=== PATIENT | female | born 1990 | race African-American/Black ===

== ENCOUNTER 2016-06-30 21:19 | Emergency (ER) | payer SELFPAY ==
[~2016-06-30] VITALS: Ht 162.6 cm; Wt 113.6 kg
[~2016-06-30 21:19] MED LIST: CEPHALEXIN500 MG PO; PREDNISONE20 MG PO; PROVENTIL HFA IN; ZITHROMAX500 MG PO
[2016-06-30] MEDS ORDERED: LISINOPRIL10 M1 PO (21:34)
[2016-06-30] MEDS ORDERED: LEVEMIR100 UNIT/M SC (21:35)
[2016-06-30] MEDS ORDERED: NOVOLOG100 UNIT/M (21:36)
[2016-06-30] MEDS ORDERED: AMLODIPINE10 MG PO (21:39)
[2016-06-30 21:46] LABS: HEMATOCRIT 38.5 % (37.0-47.0); HEMOGLOBIN 11.8 g/dl (12.0-16.0); IMMATURE GRANULOCYTES 0.3 % (0.0-1.0); MEAN CELL VOLUME 82.6 fL CALC (80.0-100.0); MEAN CORPUSCULAR HGB 25.3 pG CALC (26.0-32.0); MEAN CORPUSCULAR HGB CONC 30.6 g/L CALC (32.0-36.0); NEUT# 4.53 thou/uL (2.00-7.15); RED BLOOD COUNT 4.66 mill/uL (4.20-5.60); RED CELL DISTRI WIDTH 14.3 % (11.5-15.5)
[2016-06-30 22:04] LABS: ALBUMIN 4.1 g/dL (3.2-5.0); ALKALINE PHOSPHATASE 79 u/l (38-126); ANION GAP 15 (6-22 (CALC)); BILIRUBIN, TOTAL 0.4 mg/dL (0.0-1.4); BUN 13 mg/dL (7-17); BUN/CREATININE RATIO 16 (12-20 (CALC)); CARBON DIOXIDE 26 mmol/l (22-30); CHLORIDE 98 mmol/l (95-108); CREATININE 0.8 mg/dL (0.5-1.0); GFR > 60 ML/MIN (>=60 (CALC)); GFR FOR AFR.AMER. > 60 ML/MIN (>=60 (CALC)); GLUCOSE 208 mg/dL (65-105); POTASSIUM 4.3 mmol/l (3.5-5.1); SGOT/AST 23 u/l (14-36); SGPT/ALT 25 u/l (9-52); SODIUM 136 mmol/l (137-146); TOTAL PROTEIN 7.8 g/dL (6.3-8.2)
[2016-06-30] MEDS ORDERED: INDOMETHACIN75 MG PO (22:15)
[2016-06-30] MEDS ORDERED: COLCHICINE0.6 M2 PO (22:15)
[2016-06-30] MEDS ORDERED: LORTAB 5-325 MG1 TAB PO (22:15)
[2016-06-30 22:44] VITALS: BP 154/88
== END 2016-06-30 22:53 | disposition home or self-care (01) | DRG 554 ==
LOC: ED 21:19
PROVIDERS: Emergency Medicine
DX: M10.071 Idiopathic gout, right ankle and foot (principal); M25.571 Pain in right ankle and joints of right foot

== ENCOUNTER 2016-12-28 11:06 | Emergency (ER) | payer SELFPAY ==
[~2016-12-28] VITALS: Ht 162.6 cm; Wt 120.0 kg
[~2016-12-28 11:06] MED LIST changes: +AMLODIPINE10 MG PO; +COLCHICINE0.6 M2 PO; +INDOMETHACIN75 MG PO; +LEVEMIR100 UNIT/M SC; +LISINOPRIL10 M1 PO; +LORTAB 5-325 MG1 TAB PO; +NOVOLOG100 UNIT/M
[2016-12-28 11:34] LABS: HEMATOCRIT 39.6 % (37.0-47.0); HEMOGLOBIN 12.3 g/dl (12.0-16.0); IMMATURE GRANULOCYTES 0.3 % (0.0-1.0); MEAN CELL VOLUME 81.5 fL CALC (80.0-100.0); MEAN CORPUSCULAR HGB 25.3 pG CALC (26.0-32.0); MEAN CORPUSCULAR HGB CONC 31.1 g/L CALC (32.0-36.0); NEUT# 3.08 thou/uL (2.00-7.15); RED BLOOD COUNT 4.86 mill/uL (4.20-5.60); RED CELL DISTRI WIDTH 13.9 % (11.5-15.5)
[2016-12-28 11:52] LABS: ALBUMIN 4.2 g/dL (3.2-5.0); ALKALINE PHOSPHATASE 77 u/l (38-126); BILIRUBIN, TOTAL 0.5 mg/dL (0.0-1.4); BUN 10 mg/dL (7-17); BUN/CREATININE RATIO 16 (12-20 (CALC)); CALCIUM 9.6 mg/dL (8.4-10.2); CARBON DIOXIDE 24 mmol/l (22-30); CHLORIDE 104 mmol/l (95-108); CREATININE 0.6 mg/dL (0.5-1.0); GFR > 60 ML/MIN (>=60 (CALC)); GFR FOR AFR.AMER. > 60 ML/MIN (>=60 (CALC)); GLUCOSE 172 mg/dL (65-105); POTASSIUM 4.1 mmol/l (3.5-5.1); SGOT/AST 40 u/l (14-36); SGPT/ALT 33 u/l (9-52); TOTAL PROTEIN 7.9 g/dL (6.3-8.2)
[2016-12-28 11:54] LABS: ANION GAP 14 (6-22 (CALC)); SODIUM 138 mmol/l (137-146)
[2016-12-28 12:03] LABS: MYOGLOBIN 37 ng/mL (0 - 62)
[2016-12-28 13:34] LABS: URINE BILIRUBIN - DIPSTICK NEGATIVE (NEGATIVE); URINE BLOOD DIPSTICK LARGE (NEGATIVE); URINE CLARITY SLIGHT CLOUDY; URINE GLUCOSE - DIPSTICK NEGATIVE (NEGATIVE); URINE KETONE NEGATIVE (NEGATIVE); URINE LEUK ESTERASE NEGATIVE (NEGATIVE); URINE NITRITE - DIPSTICK NEGATIVE (Negative); URINE PH 5.5 (4.5-8.0); URINE PROTEIN - DIPSTICK 100 mg/dL (NEG-TRACE); URINE SPECIFIC GRAVITY >=1.030; URINE UROBILINOGEN - DIPSTICK 0.2 E.U./dL (0.2)
[2016-12-28 13:35] LABS: URINE COLOR AMBER
[2016-12-28 13:37] LABS: BARBITURATES NEGATIVE (NEGATIVE); COCAINE NEGATIVE (NEGATIVE); METHADONE NEGATIVE (NEGATIVE); OXCYCODONE NEGATIVE (NEGATIVE); TETRAHYDROCANNABIONOL POSITIVE (NEGATIVE); TRICYLIC ANTIDEPRESSANTS NEGATIVE (NEGATIVE)
[2016-12-28 13:40] LABS: URINE RBC >100 RBC/hpf (0-5); URINE SQUAMOUS EPITHELIAL CELL FEW EPI/hpf (0-FEW)
[2016-12-28 14:24] VITALS: BP 154/85
== END 2016-12-28 14:28 | disposition home or self-care (01) | DRG 948 ==
LOC: ED 11:06
PROVIDERS: Emergency Medicine
DX: R53.1 Weakness (principal); I10 Essential (primary) hypertension; E11.9 Type 2 diabetes mellitus without complications; Z79.4 Long term (current) use of insulin; Z91.14 Patient's other noncompliance with medication regimen

== ENCOUNTER 2017-01-07 08:42 | Observation (INO) | payer SELFPAY ==
[~2017-01-07] VITALS: Ht 162.6 cm; Wt 137.0 kg
--- NOTE | 2017-01-07 08:42 | NUR ---
PT TO ROOM 15 VIA EMS W/NEB. PT SEEN IN RIG BY THIS NURSE W/REG RESPIRATIONS. PT ARRIVED TO 15 AND BEGAN BREATHING RAPIDLY. PT REDIRECTED BY THIS NURSE TO SLOW BREATHING DOWN. PT BECAME AGRESSIVE AND YELLING AT NURSE TO NOT TELL HER WHAT TO DO. MD IN ROOM AND REDIRECTED PT TO CALM DOWN. NEB CONTINUED. IV SOLUMEDROL 125MG PROVIDED BY EMS SMALL PARTS ASSEMBLER.
--- NOTE | 2017-01-07 08:50 | NUR ---
POISON CONTROL CONTACTED AND ADVISED OF PT. PER POISON CONTROL--PT SHOULD BE TREATED PER NORMAL PROTOCOL FOR PT IN RESPIRATORY DISTRESS R/T IRRITANT AND ONCE CONDITION HAS RESOLVED PT MAY BE DISCHARGE. INFORMATION RELAYED TO EDP.
--- NOTE | 2017-01-07 09:00 | NUR ---
PT ON PHONE SPEAKING TO MOTHER, PT IS BREATHING BETTER, EXPLAINED THAT POISON CONTROL WANTS US TO MONITER HER RESPIRATORY COMPLAINT, MADE SURE SHE UNDERSTOOD THE REMOTE CONTROL FUNCTIONS. SIDE RAILS UP. ASKED IF SHE NEEDED ANYTHING ELSE. PT STATES NO, SHE WANTS TO KEEP PHONE TO BE ABLE TO CALL HER SISTER. STATES HER SYMPTOMS STARTED APPROX 30 MIN AGO WHEN SHE MIXED CLEANING INGREDIANTS. STATES SHE SAW FUMES EVEN THO DOOR AND WINDOW WAS OPEN IN ROOM.
[2017-01-07 09:16] LABS: HEMATOCRIT 43.6 % (37.0-47.0); HEMOGLOBIN 13.3 g/dl (12.0-16.0); IMMATURE GRANULOCYTES 0.4 % (0.0-1.0); MEAN CELL VOLUME 83.2 fL CALC (80.0-100.0); MEAN CORPUSCULAR HGB 25.4 pG CALC (26.0-32.0); MEAN CORPUSCULAR HGB CONC 30.5 g/L CALC (32.0-36.0); NEUT# 3.72 thou/uL (2.00-7.15); RED BLOOD COUNT 5.24 mill/uL (4.20-5.60); RED CELL DISTRI WIDTH 13.8 % (11.5-15.5)
[2017-01-07 09:39] LABS: ALBUMIN 4.7 g/dL (3.2-5.0); ALKALINE PHOSPHATASE 96 u/l (38-126); ANION GAP 17 (6-22 (CALC)); BILIRUBIN, TOTAL 0.5 mg/dL (0.0-1.4); BUN 8 mg/dL (7-17); BUN/CREATININE RATIO 13 (12-20 (CALC)); CARBON DIOXIDE 26 mmol/l (22-30); CHLORIDE 101 mmol/l (95-108); CREATININE 0.6 mg/dL (0.5-1.0); GFR > 60 ML/MIN (>=60 (CALC)); GFR FOR AFR.AMER. > 60 ML/MIN (>=60 (CALC)); GLUCOSE 171 mg/dL (65-105); POTASSIUM 4.1 mmol/l (3.5-5.1); SGOT/AST 22 u/l (14-36); SGPT/ALT 37 u/l (9-52); SODIUM 140 mmol/l (137-146)
[2017-01-07 09:52] LABS: MYOGLOBIN 26 ng/mL (0 - 62)
[2017-01-07] MEDS ORDERED: MEDDOSEPAK PO (10:16)
--- NOTE | 2017-01-07 11:31 | NUR ---
PT PROVIDED ADDITIONAL RESP TX, ABG DONE. EDP SPEAKS WITH PT, ADVISES ADMISSION FOR OBSERVATION OF STATUS, PT AGREEABLE.
--- NOTE | 2017-01-07 12:02 | NUR ---
SBAR PRINTED TO FLOOR
--- NOTE | 2017-01-07 12:30 | NUR ---
PT TO ROOM VIA STRETCHER ACCOMPANIED BY STAFF; AMBULATORY TO BED WITH STAND BY ASSIST; TELE MONITOR IN PLACE; PT REQUESTNG SHOWER AT THIS TIME; CALL MURO WITHIN REACH; WILL CONTINUE TO MONITOR.
--- NOTE | 2017-01-07 12:41 | NUR ---
PT TAKEN TO ROOM 277 WITHOUT INCIDENT, REPORT WAS TO MADDIE.
[2017-01-07] MEDS ORDERED: LEVEMIR100 UNIT/M SC (13:44)
[2017-01-07] MEDS ORDERED: NOVOLOG100 UNIT/M (13:44)
[2017-01-07] MEDS ORDERED: METFORMIN500 MG PO (13:44)
[2017-01-07 14:00] VITALS: BP 134/78
--- NOTE | 2017-01-07 15:30 | NUR ---
PT WATCHING TV; NO COMPLAINTS VOICED; ST 111 ON TELE MONITOR; CALL MURO WITHIN REACH; WILL CONTINUE TO MONITOR.
[2017-01-07 16:00] VITALS: BP 144/65
[2017-01-07 18:00] VITALS: BP 146/92
--- NOTE | 2017-01-07 20:00 | NUR ---
PATIENT RESTING IN BED AT THIS TIME WITH LIGHT OUT AND POSITIONED ON BHER SIDE. PATIENT WITH NO COMPLAINTS AT THIS TIME. CALL LIGHT IN REACH. WILL CONT TO MONITOR.
--- NOTE | 2017-01-07 21:30 | NUR ---
PATIENT AWAKE ALERT AND ORIENTEDX3 WITH NO COMPLAINTS AT THIS TIME. BS-253 AND MEDICATED WITH LEVEMIR 10 UNITS ORDERED. HS SNACK PROVIDED. HEP LOCK TO LEFT AC INTACT WITH GOOD BLOOD RETURN. SOLU-MEDROL GIVEN ORDERED. LUNGS ARE DIMINISHED BUT CLEAR AT THIS TIME. O2 VIA N/C IN PLACE AT 2LPM. CALL LIGHT IN REACH. WILL CONT TO MONITOR.
[2017-01-07 23:48] VITALS: BP 133/79
--- NOTE | 2017-01-08 00:12 | NUR ---
APPEARS SLEEPING AT THIS TIME POSITIONED ON HER SIDE WITH EYES CLOSED WITH O2 IN PLACE VIA NASAL CANNULA. CALL LIGHT IN REACH. WILL CONT TO MONITOR.
--- NOTE | 2017-01-08 04:41 | NUR ---
PATIENT APPEARS SLEEPING AT THIS TIME WITH O2 VIA NASAL CANNULA IN PLACE. CALL LIGHT IN REACH. WILL CONT TO MONITOR.
[2017-01-08 05:18] VITALS: BP 118/88
[2017-01-08 05:32] LABS: HEMATOCRIT 42.2 % (37.0-47.0); MEAN CELL VOLUME 82.1 fL CALC (80.0-100.0); MEAN CORPUSCULAR HGB 25.3 pG CALC (26.0-32.0); MEAN CORPUSCULAR HGB CONC 30.8 g/L CALC (32.0-36.0); RED BLOOD COUNT 5.14 mill/uL (4.20-5.60); RED CELL DISTRI WIDTH 14.2 % (11.5-15.5)
[2017-01-08 05:58] LABS: ANION GAP 20 (6-22 (CALC)); BUN 11 mg/dL (7-17); BUN/CREATININE RATIO 17 (12-20 (CALC)); CALCIUM 10.4 mg/dL (8.4-10.2); CALCULATED LDLCHOLESTEROL 159 mg/dL (62-129 (CALC)); CARBON DIOXIDE 19 mmol/l (22-30); CHLORIDE 103 mmol/l (95-108); CHOLESTEROL HDL RATIO 3.8 (<4.4 (CALC)); CREATININE 0.6 mg/dL (0.5-1.0); GFR > 60 ML/MIN (>=60 (CALC)); GFR FOR AFR.AMER. > 60 ML/MIN (>=60 (CALC)); GLUCOSE 283 mg/dL (65-105); HDL CHOLESTEROL 66 mg/dL (>=40); POTASSIUM 5.1 mmol/l (3.5-5.1); SODIUM 137 mmol/l (137-146); TOTAL CHOLESTEROL 250 mg/dl (0-199); TOTAL TRIGLYCERIDES 127 mg/dl (30-149); VLDL CHOLESTROL 25 mg/dl (2-29 (CALC))
--- NOTE | 2017-01-08 07:35 | NUR ---
PT.UPRIGHT IN BED AWAKE. DENIES ANY NEEDS AT THIS TIME, PREPARING TO EAT BREAKFAST. CALL LIGHT IS W/IN REACH.
[2017-01-08 08:20] VITALS: BP 142/86
[2017-01-08] MEDS ORDERED: LISINOPRIL10 MG PO (09:17)
[2017-01-08] MEDS ORDERED: AMLODIPINE BESYL5 MG PO (09:17)
[2017-01-08] MEDS ORDERED: LOVASTATIN20 M1 PO (09:17)
[2017-01-08] MEDS ORDERED: IPRATROPIU0.5 MG/3 M IN (09:17)
[2017-01-08] MEDS ORDERED: METFORMIN1000 MG PO (09:17)
[2017-01-08] MEDS ORDERED: PROAIR HFA108 MCG/AC IN (09:17)
[2017-01-08] MEDS ORDERED: AMARYL2 MG PO (09:17)
[2017-01-08] MEDS ORDERED: PREDNISONE10 MG PO (09:18)
--- NOTE | 2017-01-08 11:25 | NUR ---
PT.IV REMOVED/SITE APPEARS HEALTHY, CNC MACHINE PROGRAMMER REMOVED. PT.SELF AMBULATORY IN GOOD CONDITION WITH FRIEND AT SIDE.
== END 2017-01-08 11:15 | disposition home or self-care (01) | DRG 918 ==
LOC: ED 08:42 → ED-I 11:11 → ED 11:47 → MS2 11:48
PROVIDERS: Emergency Medicine; ADMIT Internal Medicine; ATTEND Internal Medicine
DX: T65.891A Toxic effect of other specified substances, accidental (unintentional), initial encounter (principal); T54.91XA Toxic effect of unspecified corrosive substance, accidental (unintentional), initial encounter; E11.69 Type 2 diabetes mellitus with other specified complication; Z68.43 Body mass index [BMI] 50.0-59.9, adult; J45.901 Unspecified asthma with (acute) exacerbation; E66.01 Morbid (severe) obesity due to excess calories; E78.5 Hyperlipidemia, unspecified; I16.0 Hypertensive urgency; L84 Corns and callosities; I10 Essential (primary) hypertension; Y92.002 Bathroom of unspecified non-institutional (private) residence as the place of occurrence of the external cause; Z91.14 Patient's other noncompliance with medication regimen; Z79.4 Long term (current) use of insulin
CPT/HCPCS: G0378; J1650

== ENCOUNTER 2017-06-26 09:44 | Emergency (ER) | payer SELFPAY ==
[~2017-06-26] VITALS: Ht 162.6 cm; Wt 150.0 kg
[~2017-06-26 09:44] MED LIST changes: +AMARYL2 MG PO; +AMLODIPINE BESYL5 MG PO; +IPRATROPIU0.5 MG/3 M IN; +LISINOPRIL10 MG PO; +LOVASTATIN20 M1 PO; +MEDDOSEPAK PO; +METFORMIN1000 MG PO; +METFORMIN500 MG PO; +PREDNISONE10 MG PO; +PROAIR HFA108 MCG/AC IN
[2017-06-26 10:49] LABS: URINE BILIRUBIN - DIPSTICK NEGATIVE (NEGATIVE); URINE BLOOD DIPSTICK TRACE-INTACT (NEGATIVE); URINE COLOR YELLOW; URINE GLUCOSE - DIPSTICK NEGATIVE (NEGATIVE); URINE KETONE NEGATIVE (NEGATIVE); URINE LEUK ESTERASE NEGATIVE (NEGATIVE); URINE NITRITE - DIPSTICK NEGATIVE (Negative); URINE PH 5.5 (4.5-8.0); URINE PROTEIN - DIPSTICK 30 mg/dL (NEG-TRACE); URINE SPECIFIC GRAVITY >=1.030; URINE UROBILINOGEN - DIPSTICK 0.2 E.U./dL (0.2)
[2017-06-26 10:52] LABS: HEMATOCRIT 42.5 % (37.0-47.0); IMMATURE GRANULOCYTES 0.1 % (0.0-1.0); MEAN CORPUSCULAR HGB 25.1 pG CALC (26.0-32.0); MEAN CORPUSCULAR HGB CONC 30.6 g/L CALC (32.0-36.0); NEUT# 4.02 thou/uL (2.00-7.15); RED BLOOD COUNT 5.18 mill/uL (4.20-5.60); RED CELL DISTRI WIDTH 13.2 % (11.5-15.5)
[2017-06-26 10:56] LABS: URINE CLARITY SL CLOUDY; URINE EPITHELIAL CELLS MODERATE EPI/hpf (0-FEW); URINE RBC 0-2 RBC/hpf (0-5)
[2017-06-26 11:12] LABS: ANION GAP 18 (6-22 (CALC)); BUN 9 mg/dL (7-17); BUN/CREATININE RATIO 15 (12-20 (CALC)); CHLORIDE 101 mmol/l (95-108); CREATININE 0.6 mg/dL (0.5-1.0); GFR > 60 ML/MIN (>=60 (CALC)); GFR FOR AFR.AMER. > 60 ML/MIN (>=60 (CALC)); POTASSIUM 4.5 mmol/l (3.5-5.1); SODIUM 141 mmol/l (137-146)
[2017-06-26 11:14] LABS: CARBON DIOXIDE 27 mmol/l (22-30)
[2017-06-26] MEDS ORDERED: CARPAL TUNNEL WRIST XX (11:36)
[2017-06-26] MEDS ORDERED: ACCURETI1 PO (11:36)
[2017-06-26] MEDS ORDERED: VOLTAREN - GENE75 MG PO (11:36)
[2017-06-26 11:53] VITALS: BP 159/91
== END 2017-06-26 11:53 | disposition home or self-care (01) | DRG 563 ==
LOC: ED 09:44
PROVIDERS: Family Medicine
DX: S39.012A Strain of muscle, fascia and tendon of lower back, initial encounter (principal); G56.03 Carpal tunnel syndrome, bilateral upper limbs; E11.65 Type 2 diabetes mellitus with hyperglycemia; Z79.84 Long term (current) use of oral hypoglycemic drugs; R60.0 Localized edema

== ENCOUNTER 2017-12-18 10:00 | Emergency (ER) | payer SELFPAY ==
[~2017-12-18] VITALS: Ht 162.6 cm; Wt 150.0 kg
[~2017-12-18 10:00] MED LIST changes: +ACCURETI1 PO; +CARPAL TUNNEL WRIST XX; +VOLTAREN - GENE75 MG PO
[2017-12-18 10:42] LABS: URINE BILIRUBIN - DIPSTICK NEGATIVE (NEGATIVE); URINE BLOOD DIPSTICK TRACE-INTACT (NEGATIVE); URINE COLOR YELLOW; URINE GLUCOSE - DIPSTICK NEGATIVE (NEGATIVE); URINE KETONE NEGATIVE (NEGATIVE); URINE LEUK ESTERASE NEGATIVE (NEGATIVE); URINE NITRITE - DIPSTICK NEGATIVE (Negative); URINE PH 5.5 (4.5-8.0); URINE PROTEIN - DIPSTICK 100 mg/dL (NEG-TRACE); URINE SPECIFIC GRAVITY >=1.030; URINE UROBILINOGEN - DIPSTICK 0.2 E.U./dL (0.2)
[2017-12-18 10:52] LABS: HEMATOCRIT 43.3 % (37.0-47.0); HEMOGLOBIN 13.5 g/dl (12.0-16.0); IMMATURE GRANULOCYTES 0.4 % (0.0-5.0); MEAN CELL VOLUME 79.4 fL CALC (80.0-100.0); MEAN CORPUSCULAR HGB 24.8 pG CALC (26.0-32.0); MEAN CORPUSCULAR HGB CONC 31.2 g/L CALC (32.0-36.0); NEUT# 5.29 thou/uL (2.00-7.15); RED BLOOD COUNT 5.45 mill/uL (4.20-5.60)
[2017-12-18 10:54] LABS: URINE CLARITY SL CLOUDY
[2017-12-18 10:55] LABS: ALBUMIN 4.5 g/dL (3.2-5.0); ALKALINE PHOSPHATASE 86 u/l (38-126); ANION GAP 17 (6-22 (CALC)); BILIRUBIN, TOTAL 0.5 mg/dL (0.0-1.4); BUN 10 mg/dL (7-17); BUN/CREATININE RATIO 16 (12-20 (CALC)); CARBON DIOXIDE 26 mmol/l (22-30); CHLORIDE 103 mmol/l (95-108); CREATININE 0.6 mg/dL (0.5-1.0); GFR > 60 ML/MIN (>=60 (CALC)); GFR FOR AFR.AMER. > 60 ML/MIN (>=60 (CALC)); LIPASE 52 u/l (23-300); POTASSIUM 4.7 mmol/l (3.5-5.1); SGOT/AST 24 u/l (14-36); SODIUM 142 mmol/l (137-146); TOTAL PROTEIN 8.3 g/dL (6.3-8.2); URINE EPITHELIAL CELLS MODERATE EPI/hpf (0-FEW); URINE MUCUS FEW hpf (NONE-FEW); URINE RBC 0-2 RBC/hpf (0-5)
[2017-12-18] MEDS ORDERED: ZOFRAN ODT4 MG PO (13:05)
[2017-12-18 13:55] VITALS: BP 165/84
== END 2017-12-18 13:59 | disposition home or self-care (01) | DRG 392 ==
LOC: ED 10:00
PROVIDERS: Family Medicine
DX: K52.9 Noninfective gastroenteritis and colitis, unspecified (principal); N83.201 Unspecified ovarian cyst, right side; I10 Essential (primary) hypertension; E11.9 Type 2 diabetes mellitus without complications; T46.5X6A Underdosing of other antihypertensive drugs, initial encounter; T38.3X6A Underdosing of insulin and oral hypoglycemic [antidiabetic] drugs, initial encounter; Z91.128 Patient's intentional underdosing of medication regimen for other reason
CPT/HCPCS: Q9967

== ENCOUNTER 2019-03-16 | Emergency (ER) | payer OTHER ==
[~2019-03-16] MED LIST changes: +ZOFRAN ODT4 MG PO
[2019-03-16 09:02] LABS: HEMATOCRIT 39.7 % (37.0-47.0); HEMOGLOBIN 12.3 g/dl (12.0-16.0); IMMATURE GRANULOCYTES 0.3 % (0.0-5.0); MEAN CORPUSCULAR HGB 25.1 pG CALC (26.0-32.0); NEUT# 6.01 thou/uL (2.00-7.15); RED BLOOD COUNT 4.9 mill/uL (4.20-5.60); RED CELL DISTRI WIDTH 13.7 % (11.5-15.5)
[2019-03-16 09:14] LABS: ALBUMIN 4.6 g/dL (3.2-5.0); ALKALINE PHOSPHATASE 100 u/l (38-126); ANION GAP 16 (6-22 (CALC)); BILIRUBIN, TOTAL 0.3 mg/dL (0.0-1.4); BUN 12 mg/dL (7-17); BUN/CREATININE RATIO 19 (12-20 (CALC)); CARBON DIOXIDE 23 mmol/l (22-30); CHLORIDE 105 mmol/l (95-108); CREATININE 0.6 mg/dL (0.5-1.0); GFR > 60 ML/MIN (>=60 (CALC)); GFR FOR AFR.AMER. > 60 ML/MIN (>=60 (CALC)); LIPASE 60 u/l (23-300); SGOT/AST 24 u/l (14-36); SODIUM 140 mmol/l (137-146); TOTAL PROTEIN 8.4 g/dL (6.3-8.2)
== END 2019-03-16 11:22 | disposition home or self-care (01) ==
PROVIDERS: Family Medicine
DX: S16.1XXA Strain of muscle, fascia and tendon at neck level, initial encounter (principal); S29.012A Strain of muscle and tendon of back wall of thorax, initial encounter; S39.012A Strain of muscle, fascia and tendon of lower back, initial encounter; M25.562 Pain in left knee; M25.561 Pain in right knee; I10 Essential (primary) hypertension; F17.210 Nicotine dependence, cigarettes, uncomplicated; W01.0XXA Fall on same level from slipping, tripping and stumbling without subsequent striking against object, initial encounter; Y92.009 Unspecified place in unspecified non-institutional (private) residence as the place of occurrence of the external cause

== ENCOUNTER 2020-08-25 09:08 | Inpatient (IN) | payer OTHER ==
[2020-08-25] VITALS (9 sets, daily range): BP systolic 162–182; BP diastolic 89–105
[~2020-08-25] VITALS: Ht 162.6 cm; Wt 131.0 kg
--- NOTE | 2020-08-25 09:25 | NUR ---
PATIENT AMBULATED TO ROOM WITH STEADY GAIT AND PHYSICIAN NOTIFIED OF PATIENT STATUS
[2020-08-25] MEDS ORDERED: MIGRAINE MEDICATION (09:49)
[2020-08-25] MEDS ORDERED: METFORMIN500 M2 PO (09:49)
[2020-08-25 10:08] LABS: HEMATOCRIT 39.5 % (37.0-47.0); HEMOGLOBIN 12.2 g/dl (12.0-16.0); IMMATURE GRANULOCYTES 0.3 % (0.0-5.0); MEAN CELL VOLUME 79.5 fL CALC (80.0-100.0); MEAN CORPUSCULAR HGB 24.5 pG CALC (26.0-32.0); MEAN CORPUSCULAR HGB CONC 30.9 g/dL CAL (32.0-36.0); NEUT# 7.62 thou/uL (2.00-7.15); RED BLOOD COUNT 4.97 mill/uL (4.20-5.60); RED CELL DISTRI WIDTH 13.9 % (11.5-15.5)
[2020-08-25 10:16] LABS: ALBUMIN 3.9 g/dL (3.2-5.0); ALKALINE PHOSPHATASE 94 u/l (38-126); ANION GAP 14 (6-22 (CALC)); BUN 6 mg/dL (7-17); BUN/CREATININE RATIO 10 (12-20 (CALC)); CARBON DIOXIDE 25 mmol/l (22-30); CHLORIDE 101 mmol/l (95-108); CREATININE 0.6 mg/dL (0.5-1.0); GFR > 60 ML/MIN (>=60 (CALC)); GFR FOR AFR.AMER. > 60 ML/MIN (>=60 (CALC)); POTASSIUM 3.8 mmol/l (3.5-5.1); SGOT/AST 20 u/l (14-36); SODIUM 136 mmol/l (137-146); TOTAL PROTEIN 7.9 g/dL (6.3-8.2)
[2020-08-25 10:21] LABS: BILIRUBIN, TOTAL 0.5 mg/dL (0.0-1.4)
--- NOTE | 2020-08-25 10:30 | NUR ---
PT LAYING PRONE IN BED FOR COMFORT. STABLE ON MONITOR. IV MEDS COMPLETED. PENDING ADMISSION.
--- NOTE | 2020-08-25 11:15 | NUR ---
PT ARRIVED TO MED SURG FLOOR IN STABLE CONDITION VIA STRETCHER ACCOMPANIED BY ED NURSE, JUNE;PT TRANSFERRED TO BED WITH MINIMAL ASSISTANCE;VS AND ASSESSMENT WERE COMPLETED;PT BELONGINGS INVENTORY WAS CONPLETED;ARM BANDS PLACED ON PT;PT ORIENTED TO ROOM,CALL LIGHT,BED,AND TV;HEART SOUNDS ARE REGULAR IN RATE AND RHYTHM;LUNG SOUNDS ARE CLEAR;RESPIRATIONS ARE EVEN AND UNLABORED ON RA;#20G IV IN LAC IS SL, PATENT AND FREE OF COMPLICATIONS AT THIS TIME;PT HAS AN ABSCESS LOCATED ON HER RT BUTTOCK THAT IS ACCOMPANIED BY SWELLING, WARMTH AND REDNESS;PT IS CURRENTLY IN PRONE POSITION FOR COMFORT AND PAIN RELIEF AT THIS TIME;PT WILL HAVE AN I&D PROCEDURE DONE IN THE OR BY ;PRE-OP PREP IS BEING PERFORMED AT THIS TIME ACCORDING TO POLICY AND ORDERS;SAFETY PRECAUTIONS IN PLACE;CALL LIGHT WITHIN REACH;PT ENCOURAGED TO CALL WITH ANY NEEDS OR CONCERNS;WILL CONTINUE TO MONITOR.
[2020-08-25 11:33] LABS: URINE BILIRUBIN - DIPSTICK NEGATIVE (NEGATIVE); URINE BLOOD DIPSTICK TRACE-LYSED (NEGATIVE); URINE COLOR YELLOW; URINE GLUCOSE - DIPSTICK NEGATIVE (NEGATIVE); URINE KETONE NEGATIVE (NEGATIVE); URINE LEUK ESTERASE NEGATIVE (NEGATIVE); URINE PROTEIN - DIPSTICK 100 mg/dL (NEG-TRACE); URINE UROBILINOGEN - DIPSTICK 0.2 E.U./dL (0.2)
[2020-08-25 11:34] LABS: URINE NITRITE - DIPSTICK NEGATIVE (Negative)
[2020-08-25 11:48] LABS: URINE BACTERIA FEW hpf; URINE SQUAMOUS EPITHELIAL CELL FEW EPI/hpf (0-FEW)
--- NOTE | 2020-08-25 12:45 | NUR ---
PT WAS TRANSPORTED VIA STRETCHER IN STABLE CONDITION TO OR ACCOMPANIED BY OR STAFF
--- NOTE | 2020-08-25 14:40 | NUR ---
PT ARRIVED BACK TO MED SURG FLOOR VIA STRETCHER IN STABLE CONDITION ACCOMPANIED BY OR STAFF;POST OP REPORT RECEIVED AT THIS TIME;PT WAS SETTLED BACK IN BED;VS ARE BEING TAKEN PER SCHEDULE;SAFETY PRECAUTIONS IN PLACE;CALL LIGHT WITHIN REACH;WILL CONTINUE TO MONITOR.
--- NOTE | 2020-08-25 16:00 | NUR ---
PT WAS FOUND RESTING IN BED WITH MOTHER AT BEDSIDE;PT IS A&OX3;PT HAS A SURGICAL INCISION ON HER RIGHT BUTTOCK WITH DRESSING THAT HAS MINIMAL DRAINAGE PRESENT AT THIS TIME;DRESSING CHANGE IS SCHEDULED FOR TONIGHT PER ORDER;#20G IV IN LAC IS RUNNING NS@75ML/HR;IV SITE IS FREE OF COMPLICATIONS AT THIS TIME;SAFETY PRECAUTIONS IN PLACE;CALL LIGHT WITHIN REACH;WILL CONTINUE TO MONITOR.
--- NOTE | 2020-08-25 20:00 | NUR ---
PATIENT ASSESSMENT COMPLETE. PATIENT SITTING UP IN BED TALKING ON PHONE. PAIN TO RIGHT BUTTOCKS 3-4. MEDICATED AROUND THE CLOCK WITH TORADOL WITH POSITIVE EFFECT. DRESSING TO BUTTOCKS INTACT. INSTRUCTED PATIENT TO LAY ON DRESSING TO AID IN DRAINING. VERBALIZED UNDERSTANDING. BED IN LOW POSITIN. CALL LIGHT WITHIN REACH.
[2020-08-26] VITALS (7 sets, daily range): BP systolic 155–178; BP diastolic 70–101
--- NOTE | 2020-08-26 00:14 | NUR ---
PATIENT PREMEDICATED FOR DRESSING CHANGE. INEFFECTIVE. DILAUDID IV GIVEN WITH BETTER EFFECT. DRAINAGE IN SANGUENOUS WITH CLOTS OBSERVABLE. PACKING REMOVED WITH DIFFICULTY. PACKING STICKING TO TISSUE. IRRIGATED WITH SALINE AND REPACKED WITH A DAMP TO DRY DRESSING AND SECURED IN PLACE WITH 2 INCH PAPER TAPE AND SKIN PREP. PATIENT TOLERATED OK.
--- NOTE | 2020-08-26 01:28 | NUR ---
PATIENT RESTING WITH EYES CLOSED. NO ACUTE DISTRESS.
--- NOTE | 2020-08-26 04:24 | NUR ---
PATIENT RESTING QUIETLY. RESPIRATIONS EASY. SEMI-FOWLERS POSITION. NO ACUTE DISTRESS NOTED.
--- NOTE | 2020-08-26 07:32 | NUR ---
ASSESSMENT DONE. PATIENT IS ALERT AND OREINT X3. PATIENT STATED PAIN IN BUTTOCK 08/10. MEIDCATED PATIENT WITH DILAUDID AND ZOFRAN. LUNGS SOUND CLEAR. IVF INFUSING WELL. SCD IN PLACE. PATIENT DENIES ANY OTHER NEEDS AT THIS TIME. CALL LIGHT IN REACH.
[2020-08-26] MEDS ORDERED: INDERAL 40MG TA40 MG PO (09:38)
[2020-08-26] MEDS ORDERED: ATORVASTATIN CA40 MG PO (09:38)
[2020-08-26] MEDS ORDERED: GLIP/METFORM1 TA1 PO (09:39)
[2020-08-26] MEDS ORDERED: HYZAAR1 TA1 PO (09:41)
[2020-08-26] MEDS ORDERED: ARIPIPRAZOLE20 MG PO (09:41)
[2020-08-26] MEDS ORDERED: FIORICET PO (09:43)
--- NOTE | 2020-08-26 10:15 | NUR ---
HAD PREMEDICATED PATIENT FOR PAIN FOR R BUTTOCKS . DRESSING CHANGE DONE ON RIGHT BUTTOCKS. PATIENT STILL HAD PAIN WHILE CHANGE THE DRESSING. BLOODY DRIANGE NOTED. PATIENT DENIES ANY OTHER NEEDS AT THIS TIME . CALL LIGHT IN REACH.
--- NOTE | 2020-08-26 12:22 | NUR ---
PATIENT HAD VOMITED. PATIENT STATED PAIN IN BUTTOCKS 08/10. MEDICATED PATIENT WITH TORADOL. PATIENT DENIES ANY OTHER NEEDS AT THIS TIME. CALL LIGHT IN REACH.
--- NOTE | 2020-08-26 13:30 | NUR ---
FOOD AND BEVERAGE ASSISTANT MANAGER ASSISTED PATIENT TO THE BATHROOM. FOOD AND BEVERAGE ASSISTANT MANAGER STATED PATIENT FELT WEAK WHEN RETURNING TO BED. CALL LIGHT IN REACH.
--- NOTE | 2020-08-26 14:50 | NUR ---
S: KEYON REZA is a 30 F who presents with BUTTICK ABSCESS. She has a history of DM2. All medications in patient's chart were reviewed. O: VS: T 96.6 W 130kG, Scr=0.6,CrCl= >120ml/min> A: Blood culture <is pending Buttock culture <is pending P: Patient is on zosyn 3.375 g q6h . Vancomycin ordered for pharmacy to dose. Start Vancomycin 1250mg IV Q8H. Vancomycin trough is drawn before the 4th dose on 08/27/20 @ 0930. Vancomycin goal trough is between <10-20 mcg/ml>. Pharmacy will follow and or advise on antibiotics use as needed. NOY DUBOIS PHARMD
--- NOTE | 2020-08-26 15:45 | NUR ---
DRAG OUT WORKER AND I ASSISTED PATIENT TO AMBULATE IN ROOM. PATIENT AMBULATED A FEW STEPS AND THEN STATED SHE FELT DIZZY. WE ASISSTED PATIENT BACK IN BED. SAFETY PRECAUTIONS REINFORCED AND CALL LIGHT IN REACH.
--- NOTE | 2020-08-26 16:49 | NUR ---
HAD PREMEDICATED PATIENT WITH PAIN MEDICATION FOR HER DRESSING CHANGE IN HER RIGHT BUTTOCKS. PATIENT HAD BLOODY DRAINAGE NOTED. PATIENT STILL HAD SOME PAIN WHILE CHANGING HER DRESSING. PATIENT DENIES ANY OTHER NEEDS AT THIS TIME. CALL LIGHT IN REACH.
--- NOTE | 2020-08-26 21:30 | NUR ---
PATIENT LAYING IN BED SEMI FOWLERS LEANING TO THE LEFT. GROGGY. PLEASANT. C/O PAIN 3 AT THIS TIME TO RIGHT BUTTOCKS. IVF INFUSING ORDERED. ASSESSMENT COMPLETE. BED IN LOW POSITION. CALL LIGHT WITHIN REACH.
--- NOTE | 2020-08-26 23:17 | NUR ---
PATIENT PREMEDICATED FOR DRESSING CHANGE. DRESSING CHANGED. PATIENT TOLERATED WELL.
[2020-08-27 04:00] VITALS: BP 164/93
[2020-08-27 05:52] LABS: HEMATOCRIT 35.5 % (37.0-47.0); HEMOGLOBIN 10.9 g/dl (12.0-16.0); MEAN CORPUSCULAR HGB 25.2 pG CALC (26.0-32.0); MEAN CORPUSCULAR HGB CONC 30.7 g/dL CAL (32.0-36.0); RED BLOOD COUNT 4.33 mill/uL (4.20-5.60); RED CELL DISTRI WIDTH 14.3 % (11.5-15.5)
[2020-08-27 06:03] LABS: ANION GAP 12 (6-22 (CALC)); BUN 7 mg/dL (7-17); BUN/CREATININE RATIO 9 (12-20 (CALC)); CARBON DIOXIDE 26 mmol/l (22-30); CHLORIDE 104 mmol/l (95-108); CREATININE 0.7 mg/dL (0.5-1.0); GFR > 60 ML/MIN (>=60 (CALC)); GFR FOR AFR.AMER. > 60 ML/MIN (>=60 (CALC)); MAGNESIUM 1.8 mg/dL (1.6-2.3); POTASSIUM 3.6 mmol/l (3.5-5.1); SODIUM 138 mmol/l (137-146)
--- NOTE | 2020-08-27 07:15 | NUR ---
PATIENT HAVING N/V THIS A.M. ZOFRAN IV GIVEN. EMESIS CHARTED. PATIENT REPORTS STOMACH UPSET "FROM THE BOWEL MEDS".
[2020-08-27 07:53] VITALS: BP 171/96
--- NOTE | 2020-08-27 07:53 | NUR ---
PT LAYING IN BED. DROWSY APPEARANCE NOTED. A&O X4. NO DISTRESS NOTED. PT DENIES ANY ACTIVE PAIN AT THIS TIME. C/O NAUSEA, NO ACTIVE VOMTIING AT THIS TIME. CLEAR BREATH SOUNDS UPON AUSCULTATION. ACTIVE BOWEL SOUNDS X4 QUADRANTS. DRESSING TO RT BUTTOCK IN PLACE, LIGHT SHADOWING NOTED. PT UPDATED ON PLANNED DRESSING CHANGE PER MD ORDERS, PT AGREEABLE. BILATERAL SCDS IN PLACE. IV HEALTHY AND PATENT WITH IVF INFUSING PER MAR ORDERS. NO OTHER NEEDS AT THIS TIME. ASSESSMENT COMPLETED. DISCUSSED POC. CALL LIGHT WITHIN REACH.
--- NOTE | 2020-08-27 08:00 | NUR ---
PT REFUSING INSULIN COVERAGE ALONG WITH METFORMIN AND GLIPIZIDE AT THIS TIME. PT EDUCATED ON IMPORTANCE OF MEDICATIONS. NO NEEDS AT THIS TIME. CALL LIGHT WITHIN REACH.
--- NOTE | 2020-08-27 09:46 | NUR ---
D SHERLY NOTIFIED OF VANCO TROUGH RESULT OF 25. VANCO DOSE FOR 10 AM TO BE HELD
--- NOTE | 2020-08-27 13:25 | NUR ---
DRESSING CHANGE COMPLETED BY THIS CARE TRANSITION MGR. PT TOLERATED WELL. SANGUINEOUS DRAINAGE NOTED. PAIN MEDICATION GIVEN. CALL LIGHT WITHIN REACH.
--- NOTE | 2020-08-27 14:12 | NUR ---
VANCOMYCIN TROUGH IS 12 WE WILL CONTINUE VANCOMYCIN 1250MG Q8H NEXT TROUGH WILL BE 08/28/20 @5920
--- NOTE | 2020-08-27 15:50 | NUR ---
PT LAYING IN BED. DRESSING CDI. NO OTHER NEEDS AT THIS TIME. CALL LIGHT WITHIN REACH.
[2020-08-27 16:45] VITALS: BP 163/81
[2020-08-27 19:43] VITALS: BP 140/84; BP 180/84
--- NOTE | 2020-08-27 20:33 | NUR ---
PATIENT RESTING IN BED. DENIES PAIN AT THIS TIME. ASSESSMENT COMPLETE AND CHARTED. BED IN LOW POSITION. CALL LIGHT WITHIN REACH. ALSO HYDRALAZINE IV GIVEN FOR ELEVATED B/P.
[2020-08-27 20:56] VITALS: BP 152/78
--- NOTE | 2020-08-27 23:03 | NUR ---
PATIENT PREMEDICATED FOR WOUND CARE. DAMP TO DRY DRESSING TO RIGHT BUTTOCK CHANGED. DRAINAGE IS SEROSANGUENOUS. NO PURULENCE. NO ODOR NOTED. WOUND BED BEEFY. PATIENT TOLERATED VERY WELL. BED IN LOW POSITION. CALL LIGHT WITHIN REACH.
--- NOTE | 2020-08-28 00:51 | NUR ---
PATIENT RESTING QUIETLY WITH EYES CLOSED. IVF INFUSING. NO PAIN AT THIS TIME.
[2020-08-28 04:00] VITALS: BP 169/98
--- NOTE | 2020-08-28 04:00 | NUR ---
RESTING QUIETLY. NO ACUTE DISTRESS NOTED
--- NOTE | 2020-08-28 04:24 | NUR ---
PATIENT GIVEN HYDRALAZINE FOR ELEVATED B/P. ICE WATER GIVEN. PAIN MEDICATION AND ANTINAUSEA MEDICATION OFFERED AND DECLINED. NO ACUTE DISTRESS OBSERVED.
[2020-08-28 05:47] VITALS: BP 178/88
--- NOTE | 2020-08-28 05:58 | NUR ---
PT B/P STILL ELEVATED. 0900 PROPANOLOL AND COZAAR GIVEN NOW.
[2020-08-28 06:12] LABS: HEMATOCRIT 37.6 % (37.0-47.0); HEMOGLOBIN 11.4 g/dl (12.0-16.0); MEAN CELL VOLUME 81.4 fL CALC (80.0-100.0); MEAN CORPUSCULAR HGB 24.7 pG CALC (26.0-32.0); MEAN CORPUSCULAR HGB CONC 30.3 g/dL CAL (32.0-36.0); RED BLOOD COUNT 4.62 mill/uL (4.20-5.60); RED CELL DISTRI WIDTH 14.1 % (11.5-15.5)
[2020-08-28 06:23] LABS: POTASSIUM 3.7 mmol/l (3.5-5.1)
[2020-08-28 06:26] LABS: CREATININE 2.9 mg/dL (0.5-1.0)
--- NOTE | 2020-08-28 07:50 | NUR ---
ASSESSMENT IS COMPLETED: IV SITE IS FREE FROM REDNESS OR EDMEA. HR IS REG,PULSES ARE STRONG X4,A BD IS SOFT WITH ACTIVE BS. BUTTOCK HAS A DRESSING IS CDI. WAITING FOR WOUND CONSULT TO COME AND EVALUATE FOR WOUND VAC PLACEMENT.
[2020-08-28 08:00] VITALS: BP 178/88
--- NOTE | 2020-08-28 11:44 | NUR ---
PT IS WATCHING TV, NO DISTRESS NOTED.
--- NOTE | 2020-08-28 12:25 | NUR ---
IV SITE STARTED TO LEAK AND BURN FROM MEDICATION. WILL STOP IV AND THEN PLACED AN ICE PACK IN PLACE.
--- NOTE | 2020-08-28 13:42 | NUR ---
DR MUIR FROM WOUND CARE IN TO VISIT WITH PT. REPLACED PACKING WITH IODOFORM. MEASUREMENTS GIVEN TO CASE MANAGEMENT . DR WILL CALL SUNNY AND INQUIRE ABOUT THE ORDER.
[2020-08-28 14:00] VITALS: BP 161/82
--- NOTE | 2020-08-28 14:12 | NUR ---
PT IV WAS LEAKING, REMOVED IV SITE CATHETER INTACT. CONTINUE TO OBSERVE AND MONITOR.
--- NOTE | 2020-08-28 15:40 | NUR ---
PT WAS GIVEN PHENERGAN IM. DUE TO CONTINUED NAUSEA, WAITING FOR IV TO BE ESTABLISHED.
--- NOTE | 2020-08-28 15:57 | NUR ---
IV SITE STARTED BY JONATHAN BOUCHER AND MAXIMUS GAITAN'S. PT TOLERATED WELL. CONTINUE TO OBSERVE AND MONITOR.
--- NOTE | 2020-08-28 16:20 | NUR ---
PT IS RELAXING IN BED WITH NO DISTRESS NOTED. IV SITE IS FREE FROM REDNESS OR EDEMA.
--- NOTE | 2020-08-28 17:43 | NUR ---
PT STAED" FELT A LITTLE BETTER FROM THE PHENERGAN.
[2020-08-28 19:30] VITALS: BP 147/87
--- NOTE | 2020-08-28 20:10 | NUR ---
Pt recveived from dayshift RN Pt in bed resting alert and oriented stable with no complaints meds given and tolerated pt been educated about antibiotics assesment done by RN Pt remain in bed resting.
--- NOTE | 2020-08-29 01:09 | NUR ---
PT IN BED RESTING STABLE WITH NO COMPLAINTS AT THE MOMENT ABX GIVEN AND TOLERATED. PT REMAIN IN BED RESTING AND MOMNITORED BY RN AND CHROME PLATER.
--- NOTE | 2020-08-29 04:15 | NUR ---
pt in bed resting stable no complaints at the moment. Pt been monitored by RN and TERMINAL OPERATIONS SUPERVISOR
[2020-08-29 04:40] VITALS: BP 164/89
[2020-08-29 05:29] LABS: HEMATOCRIT 35.5 % (37.0-47.0); MEAN CELL VOLUME 79.6 fL CALC (80.0-100.0); MEAN CORPUSCULAR HGB 24.7 pG CALC (26.0-32.0); RED BLOOD COUNT 4.46 mill/uL (4.20-5.60); RED CELL DISTRI WIDTH 14.1 % (11.5-15.5)
[2020-08-29 05:49] LABS: CREATININE 3.8 mg/dL (0.5-1.0); POTASSIUM 3.9 mmol/l (3.5-5.1)
[2020-08-29 07:45] VITALS: BP 176/85
--- NOTE | 2020-08-29 07:45 | NUR ---
ASSESSMENT IS COMPLETED: IV SITE IS FREE FROM REDNESS OR EDEMA. HR IS REG, PULSES ARE STRONG X4, ABD IS SOFT WITH ACTIVEBS. BREATH SOUNDS ARE CLEAR, BILATERALLY. DRESSING ON BUTOCK IS CDI,
--- NOTE | 2020-08-29 12:15 | NUR ---
PT HAS BEEN RELAXING IN BED WITH NO DISTRESS NOTED,AT THIS TIME, IV SITE IS FREE FROM REDNESS OR EDEMA. US OF KIDNEYS WERE COMPLTED. PT TOLERATED WELL,
--- NOTE | 2020-08-29 15:00 | NUR ---
PT BECAME NAUSEOUS. AND ASKED FOR AN EMESIS BAG. AT 1530 PAIN AND NAUSEA MEDICATION WAS GIVEN TO GET READY FOR WUND VAC PLACEMENT.
[2020-08-29 15:13] VITALS: BP 185/105
--- NOTE | 2020-08-29 16:30 | NUR ---
PT IS RELAXING IN BED WITH NO DISTRESS NOTED, MEDICATION FOR PAIN AND NAUSEA WERE CONTROLLED. IV SITE IS FREE FROM REDNESS OR EDEMA. CONTINUE TO OBSERVE AND MONITOR.
--- NOTE | 2020-08-29 17:13 | NUR ---
WOUND VAC IN PLACE. 125HMMG. BY JONATHAN BOUCHER RN.PT TOLERATED WELL. EXPLAINED RE: WHEN HER HOME UNIT COMES IN THEY CAN CHANGE THE LINE TO THE OTHER MACHINE,. VERBALIZED UNDERSTANDING.
[2020-08-29 18:50] VITALS: BP 162/91
--- NOTE | 2020-08-29 19:00 | NUR ---
CALLED [facility] G[facility] INFORMATION AND WOUND VAC NUMBER [id number] WAS GIVEN CONFIRMATION NUMBER [id number].
--- NOTE | 2020-08-29 20:50 | NUR ---
PT IN BED UPON ASSESSMENT. C/O PAIN REPORTED, ADMINSTERED PRN DILAUDID AND PRN ZOFRAN PER ORDER. WOUND VAC REMAINS TO BUTTOCKS, 125HMMG, NO LEAKS DETECTED, MACHINE OPERATING QUIETLY. INSTRUCTED PT ON S/S OF WOUND VAC LEAK, INCLUDING, INCREASED NOISE FROM WOUND VAC MACHINE AND A SUDDEN DROP IN SUCTION. PT VERBALIZED UNDERSTANDING. PT B/P ELEVATED PRIOR TO HS ADMINSTRATION OF MEDS, 162/91. RECHECK COMPLETED ONE HOUR AFTER MEDICATION ADMINSTRATION, 156/88. WILL REASSESS AT MIDNIGHT WITH NORMAL VS ROUNDS. PRN APRESLINE AVAILABLE IF NEEDED. SAFETY PRECAUTIONS IN PLACE, CALL LIGHT WITHIN REACH, BED IN LOWEST POSITION. WILL MONITOR
[2020-08-29 23:00] VITALS: BP 156/88
[2020-08-30] VITALS (7 sets, daily range): BP systolic 140–189; BP diastolic 80–95
--- NOTE | 2020-08-30 01:11 | NUR ---
PT RRESTING QUIETLY ON HER LEFT SIDE. INSTRUCTED PT ON THE IMPORTANCE OF RELIEVING PRESSURE TO R SIDE OF BUTTOCKS/WOUND VAC DRESSING. PT VERBALIZED UNDERSTANDING TO INSTRUCTION GIVEN. I WOUND VAC SUPPLIES DELIIVERED, ALL ITEMS PLACED IN ROOM WITH PT. WOUND VAC/SPONGES/CANNISTERS ALL RECIVED IN PACKAGES. SAFETY PRECAUTIONS IN PLACE, WILL CONTINUE TO MONITOR
--- NOTE | 2020-08-30 04:20 | NUR ---
PT RESTING QUIETLY IN ROOM ON LEFT SIDE. NO COMPLAINTS VOICED AT THIS TIME. BREATHING IS EVEN AND UNLABORED. WOUND VAC CONTINUES 125MMHG OF CONTINOUS SUCTION. NO AIR LEAKS DETECTED AT THIS TIME, WOUND VAC IS OPERATING IT SHOULD. NO S/S OF DISTRESS NOTED. PT WEIGHT FOR TODAY, 131KG, UP FROM 130KG YESTERDAY AT THIS TIME. SAFETY PRECAUTIONS REMAIN IN PLACE, WILL MONITOR
[2020-08-30 05:26] LABS: HEMATOCRIT 36.1 % (37.0-47.0); MEAN CELL VOLUME 79.9 fL CALC (80.0-100.0); MEAN CORPUSCULAR HGB 24.3 pG CALC (26.0-32.0); MEAN CORPUSCULAR HGB CONC 30.5 g/dL CAL (32.0-36.0); RED BLOOD COUNT 4.52 mill/uL (4.20-5.60); RED CELL DISTRI WIDTH 14.1 % (11.5-15.5)
[2020-08-30 05:31] LABS: POTASSIUM 3.9 mmol/l (3.5-5.1)
[2020-08-30 05:44] LABS: ALBUMIN 3.1 g/dL (3.2-5.0)
--- NOTE | 2020-08-30 07:00 | NUR ---
RECIEVED REPORT FROM ARNIE CORREA
--- NOTE | 2020-08-30 07:49 | NUR ---
PT RESTING ON LEFT SIDE. PT IS A/O X3. ASSESSMENT AND VITALS COMPLETED. BP 171/85, HR 69, O2 99% ON ROOM AIR. RESPIRATIONS ARE EVEN AND UNLABORED WITH NO DISTRESS NOTED. LUNG SOUNDS DIMINISHED. BOWEL SOUNDS ARE ACTIVE. RADIAL AND PEDAL PULSES STRONG. #20G IN RAC INFUSING WITH IVF PER ORDER, SITE REMAINS HEALTHY AND PATENT. PT STATES SITE IS SORE, ATTEMPTED TO START NEW IV, PT REQUEST TO KEEP CURRENT SITE. PT COMPLAINS OF 5/10 PAIN IN RIGHT BUTTOCKS. PT REFUSES PAIN MEDICATION AT THIS TIME. WOUND VAC TO RIGHT BUTTOCKS IN PLACE. SUCTION AT 125, TUBING PATENT. PT DENIES OF ANY ADDITIONAL NEEDS AT THSI TIME. ALL SAFETY PRECAUTIONS ARE IN PLACE WITH CALL LIGHT IN REACH. WILL CONTINUE TO MONITOR.
--- NOTE | 2020-08-30 09:30 | NUR ---
DR HENRIQUEZ AT BEDSIDE
--- NOTE | 2020-08-30 09:32 | NUR ---
PT COMPLAINS OF 8/10 PAIN TO RIGTH BUTTOCKS AND NAUSEA. PT MEDICATED PER EMAR. PT UNDERSTANDING OF NOT BEING DC TODAY. WOUND VAC REMAINS IN PLACE, TUBING PATENT. EXTRA PILLOWS X2 GIVEN TO REPOSITION PT. PT DENIES OF ANY OTHER NEEDS AT THIS TIME. ALL SAFETY PRECAUTIONS IN PLACE.
--- NOTE | 2020-08-30 12:10 | NUR ---
PT RESTING IN SEMI FOWLERS POSITION ON RIGHT SIDE. RESPIRATIONS ARE EVEN AND UNLABORED WITH NO DISRESS NOTED. #20G RAC INFUSING WITH IVF PER ORDER, SITE REMAINS HEALTHY AND PATENT. PT DENIES OF ANY PAINS OR DISCOMFORTS AT THIS TIME. ALL SAFETY PRECAUTIONS ARE IN PLACE WITH CALL LIGHT IN REACH. WILL CONTINUE TO MONITOR.
--- NOTE | 2020-08-30 16:21 | NUR ---
PT SLEEPING IN SEMI FOWLERS POSITION. RESPIRATIONS ARE EVEN AND UNLABORED WITH NO DISTRESS NOTED. WOUND VAC IN PLACE, SUCTION AT 125. #20G RAC INFUSING WITH IVF PER ORDER, SITE REMAINS HEALTHY. NO SIGNS OF ANY PAINS OR DISCOMFORTS. WILL CONTINUE TO MONITOR. ALL SAFTEY PRECAUTIONS ARE IN PLACE WITH CALL LIGHT IN REACH. WILL CONTINUE TO MONITOR
--- NOTE | 2020-08-30 17:08 | NUR ---
PT COMPLAINING OF NAUSEA AND 6/10 PAIN. BP REMAINS ELVATED AT 189/95, HR 86. PT MEDICATED PER EMAR. IVF INFUSING PER ORDER, SITE REMAINS HEALTHY AND PATENT.EMISIS BAGS PROVIDED. PT DENIES OF ANY NEEDS. ALL SAFETY PRECAUTIONS ARE IN PLACE WITH CALL LIGHT IN REACH. WILL CONTINUE TO MONITOR
--- NOTE | 2020-08-30 17:49 | NUR ---
REASSESSMENT OF BP RESULTING IN 176/82, HR 79, O2 96% ON ROOM AIR.PT STATES PAIN IS STILL 6/10. RESPIRATIONS ARE LABORED. PT STATES SHE FEELS LIKE SHES HAVING A PANIC ATTACK. 2L NC APPLIED. PT INSTRCUTED ON SLOW DEEP BREATHING. 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 INFORMATION SECURITY ENGINEER ENSURED PT THAT HER CURRENT HELP WAS THE MOST IMPORTANT GOAL AT THIS TIME. INFORMATION SECURITY ENGINEER INFORMED PT THAT SHE WAS DC HOME TODAY DUE HER LABS, NOT ANYTHING SHE DID. BREATHING IMPROVES. PT ASSISTED TO BEDSIDE COMMONDE AND BACK INTO BED. 2L NC REMAINS APPLIED. BREATHING LABORED BUT BETTER. ALL SAFETY PRECAUTIONS ARE IN PLACE WITH CALL LIGHT IN REACH. WILL CONTINUE TO MONITOR.
--- NOTE | 2020-08-30 18:02 | NUR ---
REASSESSMENT OF BP RESULTING IN 176/82, HR 79, O2 96% ON ROOM AIR.PT STATES PAIN IS STILL 6/10. RESPIRATIONS ARE LABORED. PT STATES SHE FEELS LIKE SHES HAVING A PANIC ATTACK. 2L NC APPLIED. PT INSTRCUTED ON SLOW DEEP BREATHING. 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 ADJUNCT PHILOSOPHY FACULTY ENSURED PT THAT HER CURRENT HEALTH WAS THE MOST IMPORTANT GOAL AT THIS TIME. ADJUNCT PHILOSOPHY FACULTY INFORMED PT THAT SHE WAS DC HOME TODAY DUE HER LABS, NOT ANYTHING SHE DID. BREATHING IMPROVES. PT ASSISTED TO BEDSIDE COMMONDE AND BACK INTO BED. 2L NC REMAINS APPLIED. BREATHING LABORED BUT BETTER. ALL SAFETY PRECAUTIONS ARE IN PLACE WITH CALL LIGHT IN REACH. WILL CONTINUE TO MONITOR.
--- NOTE | 2020-08-30 19:10 | NUR ---
REPORT RECEIVED FROM Marlo PORTILLO LPN, CARE OF PT ASSUMED AT THIS TIME.
--- NOTE | 2020-08-30 20:00 | NUR ---
POINT OF CARE GLUCOSE 156 mg/dl REPORTED BY Jimena BOUCHER CNA.
--- NOTE | 2020-08-30 23:45 | NUR ---
FRESH ICE WATER PROVIDED, PT DENIES FURTHER NEEDS. CALL MURO WITHIN REACH, AGREES TO CALL PRN.
[2020-08-31] VITALS: BP 149/84
--- NOTE | 2020-08-31 01:09 | NUR ---
PT APPEARS TO BE SLEEPING COMFORTABLY. LAYING IN BED, EYES CLOSED, SNORING GENTLY. RESPIRATIONS REGULAR AND UNLABORED. CALL MURO REMAINS WITHIN REACH.
[2020-08-31 04:00] VITALS: BP 157/91
--- NOTE | 2020-08-31 05:02 | NUR ---
Ajith MELO SHAPER HAND IN ROOM COLLECTING BLOOD WORK.
[2020-08-31 06:06] LABS: HEMATOCRIT 35.6 % (37.0-47.0); HEMOGLOBIN 11.1 g/dl (12.0-16.0); MEAN CELL VOLUME 79.1 fL CALC (80.0-100.0); MEAN CORPUSCULAR HGB 24.7 pG CALC (26.0-32.0); MEAN CORPUSCULAR HGB CONC 31.2 g/dL CAL (32.0-36.0); RED BLOOD COUNT 4.5 mill/uL (4.20-5.60); RED CELL DISTRI WIDTH 13.9 % (11.5-15.5)
[2020-08-31 06:19] LABS: CREATININE 4.3 mg/dL (0.5-1.0); POTASSIUM 4.1 mmol/l (3.5-5.1)
[2020-08-31 08:06] VITALS: BP 174/92
--- NOTE | 2020-08-31 08:06 | NUR ---
PT IS SITTING UP IN BED. NO DISTRESS NOTED. PT ALERT AND ORIENTED. WOUND VAC IN PLACE, SET TO CONTINUAS SUCTION AT 125MM HG. SEROUS [place] DRAINAGE, SCANT. IV PATENT. VITALS AND ASSESSMENT PERFORMED. LUNG SOUND CLEAR BILATERALLY. PULSES EQUAL AND STRONG BILATERALLY. CALL LIGHT WITHIN REACH.
--- NOTE | 2020-08-31 08:34 | NUR ---
IV INFILTRATED. IV INTACT UPON REMOVAL. ENCOURAGED PT TO RESTART IV, PT REFUSED AT THIS TIME. MD TO BE NOTIFIED.
[2020-08-31] MEDS ORDERED: NIFEDIPINE ER60 MG PO (11:27)
[2020-08-31] MEDS ORDERED: CLONIDINE HCL0.1 MG PO (11:28)
--- NOTE | 2020-08-31 12:20 | NUR ---
PATIENT LAYING IN BED IN THE PRONE POSITION. NO DISTRESS NOTED. CALL LIGHT WITHIN REACH.
[2020-08-31 12:23] VITALS: BP 151/88
[2020-08-31] MEDS ORDERED: NOVOLIN N100 UNIT/4 SC (12:33)
[2020-08-31] MEDS ORDERED: AMOXICILLIN/PO500 MG PO (12:34)
[2020-08-31] MEDS ORDERED: DOXYCYC MONO100 M2 PO (12:34)
[2020-08-31] MEDS ORDERED: LORTAB5 PO (12:36)
[2020-08-31 14:56] VITALS: BP 155/71
[2020-08-31 15:29] VITALS: BP 155/71
--- NOTE | 2020-08-31 15:40 | NUR ---
D/C INSTRUCTIONS GIVEN TO PT
--- NOTE | 2020-08-31 15:56 | NUR ---
Discharge instructions given. EDUCATION PROVIDED REGARDING NEW MEDICATION AND INSULIN ADMINISTRATION. DEMONSTRATION GIVEN ON HOW TO ADMINISTER INSULIN AND ON APPROPRIATE SITES. IMPORTANCE OF FOLLOWING UP WITH PHYSICIANS AND WOUND CARE GIVEN. HOME WOUND VAC PLACED. Patient verbalizes understanding of same. Discharged in stable condition via Wheelchair to Home with staff. All belongings sent with pt.
== END 2020-08-31 15:58 | disposition home health service (06) | DRG 602 ==
LOC: ED 09:08 → ED-I 09:35 → ED 09:48 → MS2 09:49
PROVIDERS: Emergency Medicine; Internal Medicine Nephrology; Nurse Practitioner; ADMIT Surgery; ATTEND Internal Medicine
PROC: 0H98XZZ Drainage of Buttock Skin, External Approach (ICD-10-PCS; principal; 2020-08-25)
PROC: 2W1NX6Z Compression of Right Upper Leg using Pressure Dressing (ICD-10-PCS; 2020-08-29)
DX: L02.31 Cutaneous abscess of buttock (principal); N17.0 Acute kidney failure with tubular necrosis; Z68.43 Body mass index [BMI] 50.0-59.9, adult; E87.2 Acidosis; E87.1 Hypo-osmolality and hyponatremia; N10 Acute pyelonephritis; I10 Essential (primary) hypertension; E11.9 Type 2 diabetes mellitus without complications; J45.909 Unspecified asthma, uncomplicated; D64.9 Anemia, unspecified; F31.9 Bipolar disorder, unspecified; F41.9 Anxiety disorder, unspecified; H40.9 Unspecified glaucoma; E66.01 Morbid (severe) obesity due to excess calories; F17.200 Nicotine dependence, unspecified, uncomplicated; Z79.84 Long term (current) use of oral hypoglycemic drugs; Z20.822 Contact with and (suspected) exposure to COVID-19
CPT/HCPCS: J0131; J1650; J3370

== ENCOUNTER 2021-12-19 11:54 | Emergency (ER) | payer OTHER ==
[2021-12-19] VITALS (34 sets, daily range): BP systolic 175–234; BP diastolic 89–132
[~2021-12-19] VITALS: Ht 162.6 cm; Wt 118.0 kg
[~2021-12-19 11:54] MED LIST changes: +AMOXICILLIN/PO500 MG PO; +ARIPIPRAZOLE20 MG PO; +ATORVASTATIN CA40 MG PO; +CLONIDINE HCL0.1 MG PO; +DOXYCYC MONO100 M2 PO; +FIORICET PO; +GLIP/METFORM1 TA1 PO; +HYZAAR1 TA1 PO; +INDERAL 40MG TA40 MG PO; +LORTAB5 PO; +METFORMIN500 M2 PO; +MIGRAINE MEDICATION; +NIFEDIPINE ER60 MG PO; +NOVOLIN N100 UNIT/4 SC
[2021-12-19 13:09] LABS: HEMATOCRIT 40.5 % (37.0-47.0); HEMOGLOBIN 12.2 g/dl (12.0-16.0); IMMATURE GRANULOCYTES 0.2 % (0.0-5.0); MEAN CELL VOLUME 78.2 fL CALC (80.0-100.0); MEAN CORPUSCULAR HGB 23.6 pG CALC (26.0-32.0); MEAN CORPUSCULAR HGB CONC 30.1 g/dL CAL (32.0-36.0); NEUT# 2.95 thou/uL (2.00-7.15); RED BLOOD COUNT 5.18 mill/uL (4.20-5.60); RED CELL DISTRI WIDTH 14.8 % (11.5-15.5)
[2021-12-19 13:19] LABS: ALKALINE PHOSPHATASE 93 u/l (38-126); BILIRUBIN, TOTAL 0.3 mg/dL (0.0-1.4); CHLORIDE 102 mmol/l (95-108); SGOT/AST 27 u/l (14-36); SODIUM 137 mmol/l (137-146); TOTAL PROTEIN 8.2 g/dL (6.3-8.2)
[2021-12-19 13:22] LABS: ALBUMIN 4.4 g/dL (3.2-5.0); ANION GAP 17 (6-22 (CALC)); BUN 8 mg/dL (7-17); BUN/CREATININE RATIO 11 (12-20 (CALC)); CARBON DIOXIDE 22 mmol/l (22-30); CREATININE 0.7 mg/dL (0.5-1.0); GFR FOR AFR.AMER. > 60 ML/MIN (>=60 (CALC)); GFR OTHER RACES > 60 ML/MIN (>=60 (CALC))
[2021-12-19] MEDS ORDERED: METFORMIN500 M2 PO (15:43)
== END 2021-12-19 16:22 | disposition home or self-care (01) ==
LOC: ED 11:54
PROVIDERS: Family Medicine
DX: I10 Essential (primary) hypertension (principal); E11.9 Type 2 diabetes mellitus without complications; J45.909 Unspecified asthma, uncomplicated; F31.9 Bipolar disorder, unspecified; F41.9 Anxiety disorder, unspecified; Z79.84 Long term (current) use of oral hypoglycemic drugs; Z79.4 Long term (current) use of insulin

== ENCOUNTER 2022-06-07 07:31 | Emergency (ER) | payer OTHER ==
[~2022-06-07] VITALS: Ht 162.6 cm; Wt 117.9 kg
[2022-06-07] VITALS (14 sets, daily range): BP systolic 184–242; BP diastolic 107–144
[2022-06-07] MEDS ORDERED: LISINOPRIL10 MG PO (07:49)
[2022-06-07] MEDS ORDERED: AMLODIPINE BESY10 MG PO (10:22)
== END 2022-06-07 10:40 | disposition left against medical advice (07) ==
LOC: ED 07:31
DX: M79.641 Pain in right hand (principal); I10 Essential (primary) hypertension; E66.01 Morbid (severe) obesity due to excess calories; E11.9 Type 2 diabetes mellitus without complications; J45.909 Unspecified asthma, uncomplicated; F41.9 Anxiety disorder, unspecified; F31.9 Bipolar disorder, unspecified; Z79.4 Long term (current) use of insulin; Z53.29 Procedure and treatment not carried out because of patient's decision for other reasons

== ENCOUNTER 2023-11-15 01:01 | Emergency (ER) | payer SELFPAY ==
[2023-11-15] VITALS (11 sets, daily range): BP systolic 145–188; BP diastolic 68–102
[~2023-11-15] VITALS: Ht 160 cm; Wt 142.0 kg
[~2023-11-15 01:01] MED LIST changes: +AMLODIPINE BESY10 MG PO; +HYZAAR1 TA2 PO; +PREDNISONE50 MG PO
[2023-11-15] MEDS ORDERED: IPRATROPIUM-Albuterol 0.5MG-2.5MG/3 ML NEB ONE ×6 (01:45→04:20)
[2023-11-15] MEDS ORDERED: methylPREDNISolone SODIUM SUCC 125 MG/2 ML SDV IV ONE (02:05)
[2023-11-15] MEDS ORDERED: MAGNESIUM SULFATE HEPTAHYDRATE 50 ML IV ONE (02:05)
[2023-11-15 02:24] LABS: BASO% 0.3 % (0-3); EOS% 3.7 % (0-8); HEMATOCRIT 40.2 % (37.0-47.0); HEMOGLOBIN 11.7 g/dl (12.0-16.0); IMMATURE GRANULOCYTES 0.1 % (0.0-5.0); LYMPH% 26.2 % (15-41); MEAN CELL VOLUME 81.4 fL CALC (80.0-100.0); MEAN CORPUSCULAR HGB 23.7 pG CALC (26.0-32.0); MEAN CORPUSCULAR HGB CONC 29.1 g/dL CAL (32.0-36.0); MONO% 6.2 % (2-13); NEUT# 4.84 thou/uL (2.00-7.15); NEUT% 63.5 % (42-76); RED BLOOD COUNT 4.94 mill/uL (4.20-5.60); RED CELL DISTRI WIDTH 13.8 % (11.5-15.5)
[2023-11-15 02:35] LABS: ALBUMIN 3.8 g/dL (3.2-5.0); BILIRUBIN, TOTAL 0.2 mg/dL (0.02-1.3); CREATININE 0.9 mg/dL (0.5-1.0); POTASSIUM 4.2 mmol/l (3.5-5.1); TOTAL PROTEIN 7.3 g/dL (6.3-8.2)
[2023-11-15] MEDS ORDERED: METOPROLOL TARTRATE 5 MG/5 ML VIAL IV ONE (04:20)
[2023-11-15] MEDS ORDERED: diazePAM 10 MG/2 ML VIAL IV ONE (04:20)
[2023-11-15] MEDS ORDERED: SODIUM CHLORIDE 0.9% 250 ML IV ONE (04:38)
[2023-11-15] MEDS ORDERED: IPRATROPIU0.5 MG/3 M IN (05:37)
[2023-11-15] MEDS ORDERED: PREDNISONE50 MG PO (05:37)
== END 2023-11-15 06:47 | disposition home or self-care (01) | DRG 203 ==
LOC: ED 01:01
PROVIDERS: Emergency Medicine
DX: J45.901 Unspecified asthma with (acute) exacerbation (principal); I10 Essential (primary) hypertension; E11.9 Type 2 diabetes mellitus without complications; F41.9 Anxiety disorder, unspecified; F31.9 Bipolar disorder, unspecified
CPT/HCPCS: J3475; Q9967

== ENCOUNTER 2024-03-03 14:26 | Emergency (ER) | payer SELFPAY ==
[~2024-03-03] VITALS: Ht 160 cm; Wt 113.4 kg
[2024-03-03] MEDS ORDERED: methylPREDNISolone SODIUM SUCC 125 MG/2 ML SDV IM ONE (16:05)
[2024-03-03] MEDS ORDERED: IPRATROPIUM-Albuterol 0.5MG-2.5MG/3 ML NEB ONE ×2 (16:05→16:25)
[2024-03-03] MEDS ORDERED: ALBUTEROL SULFATE 2.5 MG VIAL IN ONE ×2 (16:25)
[2024-03-03 16:30] VITALS: BP 188/116
[2024-03-03] MEDS ORDERED: MAGNESIUM SULFATE HEPTAHYDRATE 50 ML IV ONE (16:30)
[2024-03-03 16:35] LABS: BASO% 0.3 % (0-3); EOS% 3.6 % (0-8); HEMATOCRIT 38.5 % (37.0-47.0); HEMOGLOBIN 11.1 g/dl (12.0-16.0); IMMATURE GRANULOCYTES 0.2 % (0.0-5.0); LYMPH% 38.7 % (15-41); MEAN CELL VOLUME 75.9 fL CALC (80.0-100.0); MEAN CORPUSCULAR HGB 21.9 pG CALC (26.0-32.0); MEAN CORPUSCULAR HGB CONC 28.8 g/dL CAL (32.0-36.0); MONO% 6.5 % (2-13); NEUT# 4.61 thou/uL (2.00-7.15); NEUT% 50.7 % (42-76); RED BLOOD COUNT 5.07 mill/uL (4.20-5.60); RED CELL DISTRI WIDTH 13.8 % (11.5-15.5)
[2024-03-03 16:50] LABS: ALBUMIN 3.9 g/dL (3.2-5.0); POTASSIUM 4.5 mmol/l (3.5-5.1); TOTAL PROTEIN 7.2 g/dL (6.3-8.2)
[2024-03-03 16:55] LABS: BILIRUBIN, TOTAL 0.3 mg/dL (0.02-1.3); CREATININE 0.9 mg/dL (0.5-1.0)
[2024-03-03 17:01] VITALS: BP 188/101
[2024-03-03] MEDS ORDERED: ALBUTEROL SULFATE 8 GM INH IN ONE (17:55)
[2024-03-03] MEDS ORDERED: VENTOLIN HFA108 MCG PO (17:55)
[2024-03-03] MEDS ORDERED: NEBULIZER PO (17:55)
[2024-03-03 17:59] VITALS: BP 188/101
== END 2024-03-03 18:06 | disposition home or self-care (01) | DRG 203 ==
LOC: ED 14:26
PROVIDERS: Family Medicine
DX: J45.901 Unspecified asthma with (acute) exacerbation (principal)
CPT/HCPCS: J3475

== ENCOUNTER 2024-03-31 01:55 | Emergency (ER) | payer SELFPAY ==
[2024-03-31] VITALS (43 sets, daily range): BP systolic 110–281; BP diastolic 61–145
[~2024-03-31] VITALS: Ht 160 cm; Wt 129.0 kg
[~2024-03-31 01:55] MED LIST changes: +NEBULIZER PO; +VENTOLIN HFA108 MCG PO
[2024-03-31] MEDS ORDERED: cefTRIAXone SODIUM 2 GM in SODIUM CHLORIDE 0.9% 100 ML IV STA (02:04)
[2024-03-31] MEDS ORDERED: PROPOFOL 100 ML IV ONE ×4 (02:10→07:53)
[2024-03-31] MEDS ORDERED: LABETALOL HCL 20 MG/ 4 ML CARTRG IV ONE ×2 (02:36→02:50)
[2024-03-31 02:54] LABS: BASO% 0.4 % (0-3); EOS% 5.5 % (0-8); HEMATOCRIT 36.4 % (37.0-47.0); IMMATURE GRANULOCYTES 1.6 % (0.0-5.0); LYMPH% 56.5 % (15-41); MEAN CELL VOLUME 78.1 fL CALC (80.0-100.0); MEAN CORPUSCULAR HGB 21.5 pG CALC (26.0-32.0); MEAN CORPUSCULAR HGB CONC 27.5 g/dL CAL (32.0-36.0); MONO% 7.2 % (2-13); NEUT# 3.54 thou/uL (2.00-7.15); NEUT% 28.8 % (42-76); RED BLOOD COUNT 4.66 mill/uL (4.20-5.60)
[2024-03-31 03:04] LABS: ALBUMIN 3.8 g/dL (3.2-5.0); BILIRUBIN, TOTAL 0.3 mg/dL (0.02-1.3); POTASSIUM 4.7 mmol/l (3.5-5.1)
[2024-03-31] MEDS ORDERED: LORazepam 2 MG/ML IV ONE (03:10)
[2024-03-31 03:11] LABS: INTERNATIONAL NORMALIZED RATIO 1.1 RATIO (0.7-1.3)
[2024-03-31 03:12] LABS: ETHYL ALCOHOL 0 mg/dl (0-30)
[2024-03-31 03:14] LABS: PROTHROMBIN TIME 11.6 SECONDS (9.0-12.5)
[2024-03-31] MEDS ORDERED: [UNRECOGNIZED DRUG - OTHER] IV ONE (03:30)
[2024-03-31] MEDS ORDERED: IPRATROPIUM-Albuterol 0.5MG-2.5MG/3 ML NEB ONE (03:35)
[2024-03-31] MEDS ORDERED: methylPREDNISolone SODIUM SUCC 125 MG/2 ML SDV IV ONE (03:45)
[2024-03-31] MEDS ORDERED: MIDAZOLAM HCL 10 MG in SODIUM CHLORIDE 0.9% 90 ML IV ONE (03:50)
[2024-03-31] MEDS ORDERED: MIDAZOLAM HCL 2 MG/2 ML VIAL IV ONE (03:55)
[2024-03-31] MEDS ORDERED: DiphenhydrAMINE HCL 50 MG/ML SDV IV ONE (05:35)
[2024-03-31] MEDS ORDERED: KETAMINE HCL 50 MG/ML 10 ML VIAL IV ONE (06:00)
[2024-03-31] MEDS ORDERED: DOXYCYCLINE HYCLATE 100 MG in SODIUM CHLORIDE 0.9% 100 ML IV ONE (06:25)
== END 2024-03-31 08:30 | DRG 871 ==
LOC: ED 01:55
PROVIDERS: Emergency Medicine
PROC: 06HY33Z Insertion of Infusion Device into Lower Vein, Percutaneous Approach (ICD-10-PCS; principal; 2024-03-31)
DX: A41.9 Sepsis, unspecified organism (principal); I61.9 Nontraumatic intracerebral hemorrhage, unspecified; J96.22 Acute and chronic respiratory failure with hypercapnia; J18.9 Pneumonia, unspecified organism; I16.1 Hypertensive emergency; J45.901 Unspecified asthma with (acute) exacerbation; E11.9 Type 2 diabetes mellitus without complications; I10 Essential (primary) hypertension; F31.9 Bipolar disorder, unspecified; F41.9 Anxiety disorder, unspecified; E66.9 Obesity, unspecified
CPT/HCPCS: J0696; J1200; J2060; J2359; J2704; J3490; Q9967

== ENCOUNTER 2024-05-02 10:41 | Emergency (ER) | payer SELFPAY ==
[~2024-05-02] VITALS: Ht 160 cm; Wt 113.0 kg
[2024-05-02] VITALS (12 sets, daily range): BP systolic 177–240; BP diastolic 90–120
[2024-05-02] MEDS ORDERED: IPRATROPIUM-Albuterol 0.5MG-2.5MG/3 ML NEB ONE ×2 (10:45)
[2024-05-02] MEDS ORDERED: ALBUTEROL SULFATE 2.5 MG VIAL NEB ONE (10:45)
[2024-05-02] MEDS ORDERED: methylPREDNISolone SODIUM SUCC 125 MG/2 ML SDV IV ONE (10:45)
[2024-05-02] MEDS ORDERED: hydrALAZINE HCL 20 MG/ML VIAL(1 ML) IV ONE ×3 (10:55→11:55)
[2024-05-02 11:28] LABS: BASO% 0.4 % (0-3); EOS% 2.4 % (0-8); HEMOGLOBIN 9.8 g/dl (12.0-16.0); IMMATURE GRANULOCYTES 0.1 % (0.0-5.0); MEAN CELL VOLUME 74.6 fL CALC (80.0-100.0); MEAN CORPUSCULAR HGB 20.9 pG CALC (26.0-32.0); MONO% 7.8 % (2-13); NEUT# 4.22 thou/uL (2.00-7.15); NEUT% 54.3 % (42-76); RED BLOOD COUNT 4.69 mill/uL (4.20-5.60); RED CELL DISTRI WIDTH 15.5 % (11.5-15.5)
[2024-05-02 11:37] LABS: CREATININE 0.7 mg/dL (0.5-1.0); POTASSIUM 5.1 mmol/l (3.5-5.1)
[2024-05-02] MEDS ORDERED: ONDANSETRON HCl 4 MG/2 ML SDV IV ONE (11:45)
[2024-05-02] MEDS ORDERED: ALBUTEROL SULFATE 2.5 MG VIAL IN ONE (12:00)
[2024-05-02] MEDS ORDERED: PREDNISONE50 MG PO (12:50)
[2024-05-02] MEDS ORDERED: ALBUTEROL SUL0.083 % IN (12:50)
[2024-05-02] MEDS ORDERED: HYZAAR1 TA2 PO (12:54)
[2024-05-02] MEDS ORDERED: NORVASC PO (12:54)
== END 2024-05-02 13:03 | disposition left against medical advice (07) | DRG 203 ==
LOC: ED 10:41
PROVIDERS: Family Medicine
DX: J45.901 Unspecified asthma with (acute) exacerbation (principal); I16.0 Hypertensive urgency; I10 Essential (primary) hypertension; E11.9 Type 2 diabetes mellitus without complications; E66.01 Morbid (severe) obesity due to excess calories; F31.9 Bipolar disorder, unspecified; F17.200 Nicotine dependence, unspecified, uncomplicated; T50.916A Underdosing of multiple unspecified drugs, medicaments and biological substances, initial encounter; Z91.128 Patient's intentional underdosing of medication regimen for other reason; Z20.822 Contact with and (suspected) exposure to COVID-19; Z53.29 Procedure and treatment not carried out because of patient's decision for other reasons
CPT/HCPCS: J0360; J2405

== ENCOUNTER 2024-05-24 03:02 | Emergency (ER) | payer SELFPAY ==
[~2024-05-24] VITALS: Ht 160 cm; Wt 127.0 kg
[~2024-05-24 03:02] MED LIST changes: +ALBUTEROL SUL0.083 % IN; +NORVASC PO
[2024-05-24 03:09] VITALS: BP 140/92
[2024-05-24] MEDS ORDERED: IPRATROPIUM-Albuterol 0.5MG-2.5MG/3 ML NEB ONE ×2 (03:10→03:40)
[2024-05-24] MEDS ORDERED: ALBUTEROL SULFATE 8 GM INH INHW/SPAC ONE (03:10)
[2024-05-24 03:18] VITALS: BP 178/97
[2024-05-24] MEDS ORDERED: MAGNESIUM SULFATE HEPTAHYDRATE 50 ML IV ONE (03:20)
[2024-05-24 03:43] LABS: BASO% 0.4 % (0-3); EOS% 2.3 % (0-8); HEMATOCRIT 36.7 % (37.0-47.0); HEMOGLOBIN 10.1 g/dl (12.0-16.0); IMMATURE GRANULOCYTES 0.1 % (0.0-5.0); LYMPH% 48.1 % (15-41); MEAN CELL VOLUME 73.8 fL CALC (80.0-100.0); MEAN CORPUSCULAR HGB 20.3 pG CALC (26.0-32.0); MEAN CORPUSCULAR HGB CONC 27.5 g/dL CAL (32.0-36.0); MONO% 8.1 % (2-13); NEUT# 2.89 thou/uL (2.00-7.15); RED BLOOD COUNT 4.97 mill/uL (4.20-5.60); RED CELL DISTRI WIDTH 16.6 % (11.5-15.5)
[2024-05-24 03:54] LABS: ALBUMIN 4.2 g/dL (3.2-5.0); ALKALINE PHOSPHATASE 114 u/l (38-126); BILIRUBIN, TOTAL 0.3 mg/dL (0.02-1.3); BUN 14 mg/dL (7-17); BUN/CREATININE RATIO 19 (12-20 (CALC)); CHLORIDE 99 mmol/l (95-108); CPK 78 u/l (30-135); CREATININE 0.8 mg/dL (0.5-1.0); ESTIMATED GFR 98 ML/MIN (>=90 (CALC)); MAGNESIUM 1.5 mg/dL (1.6-2.3); SGOT/AST 25 u/l (14-36); SODIUM 134 mmol/l (137-146); TOTAL PROTEIN 7.8 g/dL (6.3-8.2)
[2024-05-24 03:56] LABS: ANION GAP 12 (6-22 (CALC)); CARBON DIOXIDE 27 mmol/l (22-30); POTASSIUM 3.9 mmol/l (3.5-5.1)
[2024-05-24] MEDS ORDERED: BENZONATATE 200 MG/CAP PO ONE (05:00)
[2024-05-24] MEDS ORDERED: DECADRON4 MG PO (05:50)
[2024-05-24 06:27] VITALS: BP 178/97
== END 2024-05-24 06:27 | disposition home or self-care (01) | DRG 203 ==
LOC: ED 03:02
PROVIDERS: Family Medicine
DX: J45.909 Unspecified asthma, uncomplicated (principal); I10 Essential (primary) hypertension; E11.9 Type 2 diabetes mellitus without complications; F31.9 Bipolar disorder, unspecified; F41.9 Anxiety disorder, unspecified; F17.200 Nicotine dependence, unspecified, uncomplicated; Z20.822 Contact with and (suspected) exposure to COVID-19
CPT/HCPCS: J1100; J3475; Q9967